=== PATIENT | male | born 2000 | race Caucasian/White ===

== ENCOUNTER 2023-06-19 16:33 | Emergency (ER) | payer OTHER ==
[~2023-06-19] VITALS: Ht 182.9 cm; Wt 83.4 kg
[2023-06-19 19:16] VITALS: BP 127/70; TEMP 98.5; O2SAT 97
== END 2023-06-19 19:19 | disposition home or self-care (01) ==
LOC: M ED 16:33
DX: S20.219A Contusion of unspecified front wall of thorax, initial encounter (principal); F10.10 Alcohol abuse, uncomplicated; Y04.0XXA Assault by unarmed brawl or fight, initial encounter; Y92.9 Unspecified place or not applicable; Y93.9 Activity, unspecified; Y99.9 Unspecified external cause status